=== PATIENT | female | born 1950 | race Caucasian/White ===

== ENCOUNTER 2018-03-25 08:47 | Emergency (ER) | payer OTHER ==
[~2018-03-25] VITALS: Ht 157.5 cm; Wt 66.2 kg
[~2018-03-25 08:47] MED LIST: AMLODIPINE BESYL5 MG; COZAAR100 MG; CRESTOR10 MG; EPIVIR300 MG; INTESTINEX680 M1 PO; LEVSIN/SL0.125 MG SL; LISINOPRIL10 MG; LISINOPRIL2.5 MG; LOSARTAN POTASS25 MG; PROTONIX40 MG PO; ZANTAC150 MG PO; [UNRECOGNIZED DRUG - OTHER]; [UNRECOGNIZED DRUG - OTHER] PO; [UNRECOGNIZED DRUG - OTHER] PO; [UNRECOGNIZED DRUG - REMARK]
[2018-03-25] MEDS ORDERED: LEVSIN/SL0.125 MG PO (12:25)
[2018-03-25] MEDS ORDERED: INTESTINEX680 M1 PO (12:25)
[2018-03-25] MEDS ORDERED: ZANTAC150 MG PO (12:25)
== END 2018-03-25 14:35 | disposition home or self-care (01) ==
LOC: ER 08:47
DX: K29.00 Acute gastritis without bleeding (principal)

== ENCOUNTER 2019-06-07 18:04 | Emergency (ER) | payer OTHER ==
[~2019-06-07] VITALS: Ht 152.4 cm; Wt 63.5 kg
[~2019-06-07 18:04] MED LIST changes: +LEVSIN/SL0.125 MG PO
== END 2019-06-08 00:20 | disposition home or self-care (01) ==
LOC: ER 18:04
DX: K29.60 Other gastritis without bleeding (principal)

== ENCOUNTER 2019-06-10 21:57 | Emergency (ER) | payer OTHER ==
[~2019-06-10] VITALS: Ht 157.5 cm; Wt 63.5 kg
[2019-06-11] MEDS ORDERED: LEVSIN/SL0.125 MG SL (04:13)
[2019-06-11] MEDS ORDERED: PEPCID40 MG PO (04:14)
== END 2019-06-11 04:23 | disposition home or self-care (01) ==
LOC: ER 21:57
DX: K76.0 Fatty (change of) liver, not elsewhere classified (principal); R10.11 Right upper quadrant pain

== ENCOUNTER 2020-06-07 14:38 | Emergency (ER) | payer OTHER ==
[~2020-06-07] VITALS: Ht 152.4 cm; Wt 61.2 kg
[~2020-06-07 14:38] MED LIST changes: +PEPCID40 MG PO
[2020-06-07] MEDS ORDERED: LAMIVUDINE300 MG (15:22)
[2020-06-07] MEDS ORDERED: CARAFATE1 GM PO (18:09)
[2020-06-07] MEDS ORDERED: PEPCID AC20 MG PO (18:09)
== END 2020-06-07 18:17 | disposition home or self-care (01) ==
LOC: ER 14:38
DX: K29.70 Gastritis, unspecified, without bleeding (principal); R10.11 Right upper quadrant pain